=== PATIENT | female | born 1975 | race Two or more races ===

== ENCOUNTER 2019-10-26 16:33 | Emergency (ER) | payer SELFPAY ==
[~2019-10-26] VITALS: Ht 165.1 cm; Wt 72.6 kg
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
--- NOTE | 2019-10-26 16:53 | NUR ---
[facility] AT BEDSIDE FOR XRAY
[2019-10-26] MEDS ORDERED: ACETAMINOPHEN ES 500 MG TABLET ONE (16:57)
[2019-10-26] MEDS ORDERED: ACETAMINOPHEN 325 MG TABLET PO ONE (17:00)
[2019-10-26 17:44] VITALS: BP 100/59
--- NOTE | 2019-10-26 17:44 | NUR ---
Patient discharged to home in stable condition. Written and verbal after care instructions given. Patient verbalizes understanding of instruction.
== END 2019-10-26 17:45 | disposition home or self-care (01) ==
LOC: ER 16:41
DX: M25.522 Pain in left elbow (principal)
CPT/HCPCS: 73080; 73090; 99284; A6403

== ENCOUNTER 2024-11-29 07:51 | Emergency (ER) | payer BC ==
[~2024-11-29] VITALS: Ht 165.1 cm; Wt 68.0 kg
[2024-11-29] MEDS: IV NS 0.9% 1,000 ML BAG IV ONE (08:25)
[2024-11-29] MEDS ORDERED: ONDANSETRON HCL/PF 4 MG/2 ML VIAL ONE (08:27)
[2024-11-29 08:30] LABS: PLATELET COUNT (AUTO) 283 K/uL (150-450); RED BLOOD CELL COUNT(AUTO) 4.70 MIL/uL (4.0-5.2); RED CELL DISTRIBUTION WIDTH 13.0 % (11.5-15.0); WHITE BLOOD COUNT (AUTO) 9.8 K/uL (4.3-11.0)
[2024-11-29] MEDS: ONDANSETRON HCL/PF 4 MG/2 ML VIAL IVP ONE (08:30)
[2024-11-29 08:36] LABS: CALCIUM, SERUM 8.1 mg/dL (8.5-10.1); CREATININE 0.6 mg/dL (0.6-1.3); SODIUM SERUM 134.0 mmol/L (136-145); UREA NITROGEN, BLOOD 16.0 mg/dL (7-18)
[2024-11-29 08:38] LABS: APPEARANCE,URINE CLEAR (CLEAR); BLOOD, URINE 1+ Ery/uL (NEGATIVE); LEUKOCYTE ESTERASE ,URINE NEGATIVE (NEGATIVE); NITRITE, URINE NEGATIVE (NEGATIVE); UGLUCOSE NEGATIVE (NEGATIVE)
[2024-11-29 08:40] LABS: PREGNANCY TEST URINE QUAL NEGATIVE (NEGATIVE)
[2024-11-29 08:42] LABS: ASPARTATE AMINOTRANSFERASE 18.0 U/L (15-37); TOTAL PROTEIN, SERUM 7.2 g/dL (6.4-8.2)
[2024-11-29 08:43] LABS: ADD URINE CULTURE NO
[2024-11-29] MEDS ORDERED: MORPHINE SULFATE INJ 2 MG/ML DISP.SYRIN ONE (09:25)
[2024-11-29] MEDS: MORPHINE SULFATE INJ 2 MG/ML DISP.SYRIN IV ONE (09:29)
[2024-11-29] MEDS ORDERED: DOCU-141 PO (11:21)
[2024-11-29 12:00] VITALS: BP 110/67; TEMP 98.1; O2SAT 98
== END 2024-11-29 12:01 | disposition home or self-care (01) ==
LOC: ER 08:02
DX: D25.9 Leiomyoma of uterus, unspecified (principal); R33.9 Retention of urine, unspecified
CPT/HCPCS: 99285; 74176; 96374; 96375; 96361; 51702; 85025; 80048; 83690; 80076; 81001; 36415; 84703 ×2; J2405; J7030; J2270